=== PATIENT | male | born 1975 | race Caucasian/White ===

== ENCOUNTER 2021-08-25 08:57 | Observation (INO) | payer OTHER ==
[2021-08-25] MEDS ORDERED: Sodium Chloride 0.9% 10 ML Syringe FLUSH PRN ×2 (09:05→11:34)
[2021-08-25] MEDS ORDERED: Sodium Chloride 0.9% 2.5 ML Syringe FLUSH PRN ×2 (09:05→11:34)
--- NOTE | 2021-08-25 09:09 | EDM.PDOC ---
ED HPI GENERAL MEDICAL PROBLEM - General Chief Complaint: Abdominal Pain Stated Complaint: R LOWER QUAD PAIN Time Seen by Provider: 08/25/21 09:00 - History of Present Illness INITIAL COMMENTS - FREE TEXT/NARRATIVE: 46-year-old male with minimal past history presenting with abdominal pain. Symptoms started on Saturday with an 8 out of 10 periumbilical abdominal pain that is radiated to the right lower quadrant and is now relatively mild maybe 1 out of 10. It is associated with anorexia and diarrhea pheresis subjective fevers as well. No diarrhea no vomiting. No dysuria or hematuria. No prior abdominal surgeries. Patient Clines pain medication at this time. Abdominal pain Pain Score (Numeric/FACES): 2 - Related Data Allergies Allergy/AdvReac Type Severity Reaction Status Date / Time No Known Allergies Allergy Verified 08/25/21 09:02 Home Meds: Home Meds Multivitamin 1 each PO 08/25/21 [History] Past Medical History - Past Health History Medical/Surgical History: Denies Medical/Surgical History Genitourinary History: Reports: Renal Calculus - Infectious Disease History Infectious Disease History: Reports: Chicken Pox - Past Surgical History Male Surgical History: Reports: Kidney Stone Extraction Social & Family History - Family History Family Medical History: No Pertinent Family History - Caffeine Use Caffeine Use: Reports: Soda ED ROS GENERAL - Review of Systems Review Of Systems: See Below Free Text/Narrative/Comment: General: Per HPI ENT: No sore throat. Neck: No neck stiffness. Respiratory: No shortness of breath. Cardiac: No chest pain. Gastrointestinal: Per HPI Urinary: No dysuria. Musculoskeletal: No myalgias/arthralgias. Neurologic: No headache. ED EXAM, GENERAL - Physical Exam Exam: See Below Free Text/Narrative:: General Appearance: No acute distress, appears comfortable Skin: No rash HEENT: Normocephalic/atraumatic, sclera anicteric, mucous membranes moist Neck: Normal range of motion Chest and Lungs: Bilateral breath sounds, clear to auscultation Cardiovascular: Regular rate and rhythm Abdomen: Soft, right lower quadrant tenderness with guarding remainder of abdomen is soft and nontender Musculoskeletal: No edema or tenderness Neurologic: Awake, alert, no obvious deficits, moving all extremities Psychiatric: Appropriate, cooperative Course - Vital Signs Last Recorded V/S: Last Vital Signs Temp 97.8 F 08/25/21 08:59 Pulse 87 08/25/21 09:56 Resp 18 08/25/21 09:56 BP 126/82 08/25/21 09:56 Pulse Ox 97 08/25/21 09:56 - Orders/Labs/Meds Orders: Active Orders 24 hr Category Date Time Status CORONAVIRUS COVID-19 FLORENTIN [MOLEC] Stat Lab 08/25/21 10:34 Ordered Sodium Chloride 0.9% [Saline Flush] Med 08/25/21 09:05 Active 10 ml FLUSH ASDIRECTED PRN Sodium Chloride 0.9% [Saline Flush] Med 08/25/21 09:05 Active 2.5 ml FLUSH ASDIRECTED PRN Saline Lock Insert [OM.PC] Stat Oth 08/25/21 09:05 Ordered Medication Orders Sodium Chloride (Sodium Chloride 0.9% 10 Ml Syringe) 10 ml FLUSH ASDIRECTED PRN PRN Reason: Keep Vein Open Last Admin: 08/25/21 09:22 Dose: 10 ml Documented by: REYES Sodium Chloride (Sodium Chloride 0.9% 2.5 Ml Syringe) 2.5 ml FLUSH ASDIRECTED PRN PRN Reason: Keep Vein Open Last Admin: 08/25/21 09:22 Dose: 2.5 ml Documented by: REYES Labs: Laboratory Tests 08/25/21 08/25/21 Range/Units 09:13 10:04 WBC 6.73 (4.0-11.0) K/uL RBC 5.52 (4.50-5.90) M/uL Hgb 16.8 (13.0-17.0) g/dL Hct 48.8 (38.0-50.0) % MCV 88.4 (80.0-98.0) fL MCH 30.4 (27.0-32.0) pg MCHC 34.4 (31.0-37.0) g/dL RDW Std Deviation 42.4 (28.0-62.0) fl RDW Coeff of George 13 (11.0-15.0) % Plt Count 159 (150-400) K/uL MPV 9.90 (7.40-12.00) fL Neut % (Auto) 84.9 H (48.0-80.0) % Lymph % (Auto) 5.6 L (16.0-40.0) % [place] % (Auto) 9.2 (0.0-15.0) % Eos % (Auto) 0.0 (0.0-7.0) % Baso % (Auto) 0.3 (0.0-1.5) % Neut # (Auto) 5.7 (1.4-5.7) K/uL Lymph # (Auto) 0.4 L (0.6-2.4) K/uL [place] # (Auto) 0.6 (0.0-0.8) K/uL Eos # (Auto) 0.0 (0.0-0.7) K/uL Baso # (Auto) 0.0 (0.0-0.1) K/uL Nucleated RBC % 1.4 /100WBC Nucleated RBCs # 0 K/uL Sodium 137 (136-148) mmol/L Potassium 4.0 (3.5-5.1) mmol/L Chloride 100 (98-107) mmol/L Carbon Dioxide 25.3 (21.0-32.0) mmol/L BUN 11 (7.0-18.0) mg/dL Creatinine 0.9 (0.8-1.3) mg/dL Est Cr Clr Drug Dosing 103.64 mL/min Estimated GFR (MDRD) > 60.0 ml/min Glucose 120 H (74-106) mg/dL Calcium 8.7 (8.5-10.1) mg/dL Total Bilirubin 1.3 H (0.2-1.0) mg/dL AST 41 H (15-37) IU/L ALT 74 H (14-63) IU/L Alkaline Phosphatase 56 (46-116) U/L Total Protein 6.3 L (6.4-8.2) g/dL Albumin 3.5 (3.4-5.0) g/dL Globulin 2.8 (2.6-4.0) g/dL Albumin/Globulin Ratio 1.2 (0.9-1.6) Meds: Medications Generic Name Dose Route Start Last Admin Trade Name Freq PRN Reason Stop Dose Admin Sodium Chloride 10 ml 08/25/21 09:05 08/25/21 09:22 Sodium Chloride 0.9% 10 Ml Syringe FLUSH 10 ml ASDIRECTED PRN Administration Keep Vein Open Sodium Chloride 2.5 ml 08/25/21 09:05 08/25/21 09:22 Sodium Chloride 0.9% 2.5 Ml Syringe FLUSH 2.5 ml ASDIRECTED PRN Administration Keep Vein Open Discontinued Medications Generic Name Dose Route Start Last Admin Trade Name Freq PRN Reason Stop Dose Admin Iopamidol 100 ml 08/25/21 10:16 08/25/21 10:16 Iopamidol 755 Mg/Ml 500 Ml Multipack Bottle IVPUSH 08/25/21 10:17 100 ml ONETIME ONE Administration Departure - Departure Time of Disposition: 10:40 Disposition: Refer to Observation Condition: Good Clinical Impression: Acute appendicitis - Discharge Information *PRESCRIPTION DRUG MONITORING PROGRAM REVIEWED*: Not Applicable *COPY OF PRESCRIPTION DRUG MONITORING REPORT IN PATIENT JOSE: Not Applicable Referrals: Gerardo Luther MD [Primary Care Provider] - Forms: ED Department Discharge Sepsis Event Note (ED) - Evaluation Sepsis Screening Result: No Definite Risk - Focused Exam Vital Signs: Vital Signs Temp Pulse Resp BP Pulse Ox 08/25/21 09:56 87 18 126/82 97 08/25/21 08:59 97.8 F 99 18 146/91 H 97 - My Orders Last 24 Hours: My Active Orders 08/25/21 09:05 Sodium Chloride 0.9% [Saline Flush] 10 ml FLUSH ASDIRECTED PRN Sodium Chloride 0.9% [Saline Flush] 2.5 ml FLUSH ASDIRECTED PRN Saline Lock Insert [OM.PC] Stat 08/25/21 10:34 CORONAVIRUS COVID-19 FLORENTIN [MOLEC] Stat - Assessment/Plan Last 24 Hours: My Active Orders 08/25/21 09:05 Sodium Chloride 0.9% [Saline Flush] 10 ml FLUSH ASDIRECTED PRN Sodium Chloride 0.9% [Saline Flush] 2.5 ml FLUSH ASDIRECTED PRN Saline Lock Insert [OM.PC] Stat 08/25/21 10:34 CORONAVIRUS COVID-19 FLORENTIN [MOLEC] Stat Assessment:: 46-year-old male presenting with signs and symptoms that are most consistent with appendicitis no right upper quadrant findings that would suggest biliary colic renal colic is possible but is felt less likely. Other etiologies considered as well labs and CT pending. Patient declines pain or nausea medicine at this time. 1033: Labs thus far unremarkable. Pt discussed with radiologist and CT a/p with appendicitis, early, no perforation, or abscess 1040: Pt discussed with Dr. Todd. Will refer to observation bed and patient will be seen for likely surgery later today.
[2021-08-25] MEDS ORDERED: Iopamidol 755 MG/ML 500 ML Multipack Bottle IVPUSH ONE (10:16)
--- NOTE | 2021-08-25 10:35 | CT ---
Indication: Right lower quadrant pain Technique: Volumetric multidetector CT images of the abdomen and pelvis were obtained after the administration of intravenous contrast. 100 cc Isovue 370 low osmolar intravenous contrast Comparison: CT abdomen and pelvis without contrast August 12, 2018 Findings: There is bibasilar atelectasis and parenchymal scarring with calcified granuloma in the right lung base. The liver is enlarged with mild to moderate hepatic steatosis and hepatomegaly. The portal vein is patent. The gallbladder is unremarkable without evidence of radiopaque calculus. There is no significant common biliary ductal dilatation or abrupt cut off. The spleen is normal in enhancement and size. There is mild thickening of the gastric antrum and minimal mucosal hyperemia commensurate with likely chronic gastritis changes. The pancreas is normal in enhancement without significant atrophy. The adrenal glands are unremarkable. The kidneys demonstrate preserved corticomedullary differentiation without evidence of obstructive uropathy. There is a mild amount of stool seen throughout the colon. There is mild distal colonic diverticulosis. There is marked distention of the appendix with mucosal hyperemia and periappendiceal inflammatory changes measuring up to 1 centimeter in greatest dimension. There are reactive lymph nodes in the right lower quadrant. The aorta is nonaneurysmal. There is no significant atherosclerotic disease appreciated. The solid pelvic viscera are grossly unremarkable. There is no free fluid or free air. The anterior abdominal wall is intact without significant hernias. The lumbar vertebral body heights are grossly maintained with mild multi-level degenerative disc disease. Impression: There is mild fluid distension, mucosal hyperemia and periappendiceal inflammatory changes commensurate with uncomplicated appendicitis. No other acute intra-abdominal abnormalities are appreciated. Findings were discussed with Dr. Davidson at 10:30 a.m. August 25, [address] all CT scans at this facility use dose modulation, iterative reconstruction, and/or weight-based dosing when appropriate to reduce radiation dose to as low as reasonably achievable. Dictated by Waylon Hernandez MD @ 08/25/2021 10:35:20 AM (Electronically Signed)
[2021-08-25 10:38] LABS: BLOOD UREA NITROGEN,BUN 11 mg/dL (7.0-18.0); CARBON DIOXIDE,CO2 25.3 mmol/L (21.0-32.0); CHLORIDE,CL 100 mmol/L (98-107); GLUCOSE RANDOM 120 mg/dL (74-106); SODIUM,NA 137 mmol/L (136-148)
[2021-08-25] MEDS ORDERED: Piperacillin/Tazobactam 4.5 GM in Sodium Chloride 0.9% 100 ML IV ONE (10:40)
[2021-08-25] MEDS ORDERED: Albuterol 0.083% 2.5 MG/3 ML Neb Soln NEB PRN (11:11)
[2021-08-25] MEDS ORDERED: Ondansetron 4 MG/2 ML SDV IVPUSH PRN ×2 (11:11→11:35)
[2021-08-25] MEDS ORDERED: Morphine 4 MG/ML VIAL IVPUSH PRN (11:11)
[2021-08-25] MEDS ORDERED: fentaNYL 100 MCG/2 ML SDV IVPUSH PRN (11:11)
[2021-08-25] MEDS ORDERED: HYDROmorphone 1 MG/ML Syringe IVPUSH PRN (11:11)
[2021-08-25] MEDS ORDERED: Naloxone 0.4 MG/ML SDV IVPUSH PRN (11:11)
[2021-08-25] MEDS ORDERED: Metoclopramide 10 MG/2 ML SDV IVPUSH PRN (11:11)
--- NOTE | 2021-08-25 11:13 | PCM.PREANE ---
Preanesthetic Assessment - Anesthesia/Transfusion/Family Hx Anesthesia History: Prior Anesthesia Without Reaction Family History of Anesthesia Reaction: No - Review of Systems General: No Symptoms Pulmonary: No Symptoms Cardiovascular: No Symptoms Gastrointestinal: Abdominal Pain Neurological: No Symptoms Other: Reports: None - Physical Assessment NPO Status Date: 08/25/21 NPO Status Time: 07:00 Vital Signs: Last Vital Signs Temp 97.8 F 08/25/21 08:59 Pulse 87 08/25/21 09:56 Resp 18 08/25/21 09:56 BP 126/82 08/25/21 09:56 Pulse Ox 97 08/25/21 09:56 Height: 5 ft 10 in Weight: 220 lb ASA Class: 1E Mental Status: Alert & Oriented x3 Airway Class: Mallampati = 2 Dentition: Reports: Normal Dentition ROM/Head Extension: Full Lungs: Clear to Auscultation, Normal Respiratory Effort Cardiovascular: Regular Rate, Regular Rhythm - Lab Values: Laboratory Last Values WBC 6.73 K/uL (4.0-11.0) 08/25/21 09:13 RBC 5.52 M/uL (4.50-5.90) 08/25/21 09:13 Hgb 16.8 g/dL (13.0-17.0) 08/25/21 09:13 Hct 48.8 % (38.0-50.0) 08/25/21 09:13 MCV 88.4 fL (80.0-98.0) 08/25/21 09:13 MCH 30.4 pg (27.0-32.0) 08/25/21 09:13 MCHC 34.4 g/dL (31.0-37.0) 08/25/21 09:13 RDW Std Deviation 42.4 fl (28.0-62.0) 08/25/21 09:13 RDW Coeff of George 13 % (11.0-15.0) 08/25/21 09:13 Plt Count 159 K/uL (150-400) 08/25/21 09:13 MPV 9.90 fL (7.40-12.00) 08/25/21 09:13 Neut % (Auto) 84.9 % (48.0-80.0) H 08/25/21 09:13 Lymph % (Auto) 5.6 % (16.0-40.0) L 08/25/21 09:13 [place] % (Auto) 9.2 % (0.0-15.0) 08/25/21 09:13 Eos % (Auto) 0.0 % (0.0-7.0) 08/25/21 09:13 Baso % (Auto) 0.3 % (0.0-1.5) 08/25/21 09:13 Neut # (Auto) 5.7 K/uL (1.4-5.7) 08/25/21 09:13 Lymph # (Auto) 0.4 K/uL (0.6-2.4) L 08/25/21 09:13 [place] # (Auto) 0.6 K/uL (0.0-0.8) 08/25/21 09:13 Eos # (Auto) 0.0 K/uL (0.0-0.7) 08/25/21 09:13 Baso # (Auto) 0.0 K/uL (0.0-0.1) 08/25/21 09:13 Nucleated RBC % 1.4 /100WBC 08/25/21 09:13 Nucleated RBCs # 0 K/uL 08/25/21 09:13 Sodium 137 mmol/L (136-148) 08/25/21 10:04 Potassium 4.0 mmol/L (3.5-5.1) 08/25/21 10:04 Chloride 100 mmol/L (98-107) 08/25/21 10:04 Carbon Dioxide 25.3 mmol/L (21.0-32.0) 08/25/21 10:04 BUN 11 mg/dL (7.0-18.0) 08/25/21 10:04 Creatinine 0.9 mg/dL (0.8-1.3) 08/25/21 10:04 Est Cr Clr Drug Dosing 103.64 mL/min 08/25/21 10:04 Estimated GFR (MDRD) > 60.0 ml/min 08/25/21 10:04 Glucose 120 mg/dL (74-106) H 08/25/21 10:04 Calcium 8.7 mg/dL (8.5-10.1) 08/25/21 10:04 Total Bilirubin 1.3 mg/dL (0.2-1.0) H 08/25/21 10:04 AST 41 IU/L (15-37) H 08/25/21 10:04 ALT 74 IU/L (14-63) H 08/25/21 10:04 Alkaline Phosphatase 56 U/L (46-116) 08/25/21 10:04 Total Protein 6.3 g/dL (6.4-8.2) L 08/25/21 10:04 Albumin 3.5 g/dL (3.4-5.0) 08/25/21 10:04 Globulin 2.8 g/dL (2.6-4.0) 08/25/21 10:04 Albumin/Globulin Ratio 1.2 (0.9-1.6) 08/25/21 10:04 - Allergies Allergies/Adverse Reactions: Allergies Allergy/AdvReac Type Severity Reaction Status Date / Time No Known Allergies Allergy Verified 08/25/21 09:02 - Acknowledgements Anesthesia Type Planned: General Anesthesia Pt an Appropriate Candidate for the Planned Anesthesia: Yes Alternatives and Risks of Anesthesia Discussed w Pt/Guardian: Yes Pt/Guardian Understands and Agrees with Anesthesia Plan: Yes PreAnesthesia Questionnaire - Past Health History Medical/Surgical History: Denies Medical/Surgical History Genitourinary History: Reports: Renal Calculus - Infectious Disease History Infectious Disease History: Reports: Chicken Pox - Past Surgical History Male Surgical History: Reports: Kidney Stone Extraction - SUBSTANCE USE Tobacco Use Status *Q: Never Tobacco User Recreational Drug Use History: No - HOME MEDS Home Medications: Home Meds Multivitamin 1 each PO 08/25/21 [History] - CURRENT (IN HOUSE) MEDS Current Meds: Current Medications Piperacillin Sod/Tazobactam (Sod 4.5 gm/ Sodium Chloride) 100 mls @ 100 mls/hr IV ONETIME ONE Stop: 08/25/21 11:39 Last Admin: 08/25/21 11:10 Dose: 100 mls/hr Documented by: Sodium Chloride (Sodium Chloride 0.9% 10 Ml Syringe) 10 ml FLUSH ASDIRECTED PRN PRN Reason: Keep Vein Open Last Admin: 08/25/21 09:22 Dose: 10 ml Documented by: Sodium Chloride (Sodium Chloride 0.9% 2.5 Ml Syringe) 2.5 ml FLUSH ASDIRECTED PRN PRN Reason: Keep Vein Open Last Admin: 08/25/21 09:22 Dose: 2.5 ml Documented by: Discontinued Medications Iopamidol (Iopamidol 755 Mg/Ml 500 Ml Multipack Bottle) 100 ml IVPUSH ONETIME ONE Stop: 08/25/21 10:17 Last Admin: 08/25/21 10:16 Dose: 100 ml Documented by:
[2021-08-25] MEDS ORDERED: HYDROmorphone 2 MG/ML Syringe IVPUSH PRN (11:34)
[2021-08-25] MEDS ORDERED: Sodium Chloride 0.9% 20 ML SDV IV PRN (11:34)
[2021-08-25] MEDS ORDERED: Lactated Ringers 1,000 ML IV SCH (11:45)
--- NOTE | 2021-08-25 11:46 | PCM.HP.2 ---
H&P History of Present Illness - General Date of Service: 08/25/21 Admit Problem/Dx: Admission Diagnosis/Problem Admission Diagnosis/Problem Acute appendicitis Source of Information: Patient History Limitations: Reports: No Limitations - History of Present Illness Initial Comments - Free Text/Narative: Patient is a 46 year old male who presents with 2 days of abdominal pain. He states that Saturday night he had pain along the central portion of his abdomen. This was severe. It was associated with fever and chills. He denies nausea or vomiting. The pain became more centered in the RLQ so the patient presented to the ER. His vitals were stable on arrival. His WBC was normal but his neutrophil % was increased to 84%. He had a CT scan that showed mild thickening of the antrum consistent with chronic gastritis, diverticulosis, and acute appendicitis. Abdominal pain Pain Score (Numeric/FACES): 2 - Related Data Allergies/Adverse Reactions: Allergies Allergy/AdvReac Type Severity Reaction Status Date / Time No Known Allergies Allergy Verified 08/25/21 09:02 Home Medications: Home Meds Multivitamin 1 each PO 08/25/21 [History] Past Medical History - Past Health History Medical/Surgical History: Denies Medical/Surgical History Genitourinary History: Reports: Renal Calculus - Infectious Disease History Infectious Disease History: Reports: Chicken Pox - Past Surgical History Male Surgical History: Reports: Kidney Stone Extraction Social & Family History - Family History Family Medical History: No Pertinent Family History - Tobacco Use Tobacco Use Status *Q: Never Tobacco User - Caffeine Use Caffeine Use: Reports: Soda - Recreational Drug Use Recreational Drug Use: No H&P Review of Systems - Review of Systems: Review Of Systems: Comprehensive ROS is negative, except as noted in HPI. Exam - Exam Exam: See Below - Vital Signs Vital Signs: Last Vital Signs Temp 36.6 C 08/25/21 08:59 Pulse 87 08/25/21 09:56 Resp 18 08/25/21 09:56 BP 126/82 08/25/21 09:56 Pulse Ox 97 08/25/21 09:56 Weight: 99.79 kg - Exam General: Alert, Oriented, Cooperative HEENT: Conjunctiva Clear, Mucosa Moist & [place], Posterior Pharynx Clear Neck: Supple Lungs: Clear to Auscultation, Normal Respiratory Effort Cardiovascular: Regular Rate, Regular Rhythm GI/Abdominal Exam: Soft, Non-Tender, No Distention, No Mass - Patient Data Lab Results Last 24 hrs: Laboratory Results - last 24 hr 08/25/21 08/25/21 Range/Units 09:13 10:04 WBC 6.73 (4.0-11.0) K/uL RBC 5.52 (4.50-5.90) M/uL Hgb 16.8 (13.0-17.0) g/dL Hct 48.8 (38.0-50.0) % MCV 88.4 (80.0-98.0) fL MCH 30.4 (27.0-32.0) pg MCHC 34.4 (31.0-37.0) g/dL RDW Std Deviation 42.4 (28.0-62.0) fl RDW Coeff of George 13 (11.0-15.0) % Plt Count 159 (150-400) K/uL MPV 9.90 (7.40-12.00) fL Neut % (Auto) 84.9 H (48.0-80.0) % Lymph % (Auto) 5.6 L (16.0-40.0) % [place] % (Auto) 9.2 (0.0-15.0) % Eos % (Auto) 0.0 (0.0-7.0) % Baso % (Auto) 0.3 (0.0-1.5) % Neut # (Auto) 5.7 (1.4-5.7) K/uL Lymph # (Auto) 0.4 L (0.6-2.4) K/uL [place] # (Auto) 0.6 (0.0-0.8) K/uL Eos # (Auto) 0.0 (0.0-0.7) K/uL Baso # (Auto) 0.0 (0.0-0.1) K/uL Nucleated RBC % 1.4 /100WBC Nucleated RBCs # 0 K/uL Sodium 137 (136-148) mmol/L Potassium 4.0 (3.5-5.1) mmol/L Chloride 100 (98-107) mmol/L Carbon Dioxide 25.3 (21.0-32.0) mmol/L BUN 11 (7.0-18.0) mg/dL Creatinine 0.9 (0.8-1.3) mg/dL Est Cr Clr Drug Dosing 103.64 mL/min Estimated GFR (MDRD) > 60.0 ml/min Glucose 120 H (74-106) mg/dL Calcium 8.7 (8.5-10.1) mg/dL Total Bilirubin 1.3 H (0.2-1.0) mg/dL AST 41 H (15-37) IU/L ALT 74 H (14-63) IU/L Alkaline Phosphatase 56 (46-116) U/L Total Protein 6.3 L (6.4-8.2) g/dL Albumin 3.5 (3.4-5.0) g/dL Globulin 2.8 (2.6-4.0) g/dL Albumin/Globulin Ratio 1.2 (0.9-1.6) Result Diagrams: 08/25/21 09:13 08/25/21 10:04 Sepsis Event Note - Evaluation Sepsis Screening Result: No Definite Risk - Focused Exam Vital Signs: Vital Signs Temp Pulse Resp BP Pulse Ox 08/25/21 09:56 87 18 126/82 97 08/25/21 08:59 36.6 C 99 18 146/91 H 97 - Problem List (1) Acute appendicitis SNOMED Code(s): 53549623 ICD Code: K35.80 - UNSPECIFIED ACUTE APPENDICITIS Status: Acute Current Visit: Yes Problem List Initiated/Reviewed/Updated: Yes Orders Last 24hrs: Active Orders 24 hr Category Date Time Status Patient Status [ADT] Routine ADT 08/25/21 10:41 Active Blood Glucose Check, Bedside [RC] PRN Care 08/25/21 11:11 Active Notify Provider Vital Signs [RC] ASDIRECTED Care 08/25/21 11:11 Active Overnight Pulse Oximetry [RC] Click to Edit Care 08/25/21 11:11 Active Oxygen Therapy [RC] PRN Care 08/25/21 11:11 Active Oxygen Therapy [RC] PRN Care 08/25/21 11:34 Ordered RT Aerosol Therapy [RC] ASDIRECTED Care 08/25/21 11:11 Active RT Aerosol Therapy [RC] ASDIRECTED Care 08/25/21 11:11 Active RT BiPAP/CPAP [RC] ASDIRECTED Care 08/25/21 11:11 Active RT Incentive Spirometry [RC] Q1HWA Care 08/25/21 11:34 Ordered Up ad Julissa [RC] ASDIRECTED Care 08/25/21 11:34 Ordered Vital Signs [RC] PER UNIT ROUTINE Care 08/25/21 11:34 Ordered Vital Signs [RC] Q5M Care 08/25/21 11:11 Active Nothing Per Oral Diet [DIET] Diet 08/25/21 Lunch Ordered CORONAVIRUS COVID-19 FLORENTIN [MOLEC] Stat Lab 08/25/21 10:58 Received Albuterol [Proventil Neb Soln] Med 08/25/21 11:11 Ordered 2.5 mg NEB ONETIME PRN HYDROmorphone [Dilaudid] Med 08/25/21 11:34 Ordered 0.5 mg IVPUSH Q1H PRN HYDROmorphone [Dilaudid] Med 08/25/21 11:11 Ordered 1 mg IVPUSH Q10M PRN Lactated Ringers @ 125 MLS/HR(1000ml) Med 08/25/21 11:45 Ordered Lactated Ringers [Ringers, Lactated] 1,000 ml IV ASDIRECTED Metoclopramide [Reglan] Med 08/25/21 11:11 Ordered 10 mg IVPUSH ONETIME PRN Morphine Med 08/25/21 11:11 Ordered 2 mg IVPUSH Q10M PRN Naloxone [Narcan] Med 08/25/21 11:11 Ordered 0.1 mg IVPUSH ASDIRECTED PRN Ondansetron [Zofran] Med 08/25/21 11:11 Ordered 4 mg IVPUSH ONETIME PRN Ondansetron [Zofran] Med 08/25/21 11:35 Ordered 4 mg IVPUSH Q6H PRN Sodium Chloride 0.9% [Normal Saline] Med 08/25/21 11:34 Ordered 10 ml IV ASDIRECTED PRN Sodium Chloride 0.9% [Saline Flush] Med 08/25/21 09:05 Active 10 ml FLUSH ASDIRECTED PRN Sodium Chloride 0.9% [Saline Flush] Med 08/25/21 11:34 Ordered 10 ml FLUSH ASDIRECTED PRN Sodium Chloride 0.9% [Saline Flush] Med 08/25/21 09:05 Active 2.5 ml FLUSH ASDIRECTED PRN Sodium Chloride 0.9% [Saline Flush] Med 08/25/21 11:34 Ordered 2.5 ml FLUSH ASDIRECTED PRN droperidoL [Inapsine] Med 08/25/21 11:11 Ordered 0.625 mg IVPUSH ONETIME PRN fentaNYL [Sublimaze] Med 08/25/21 11:11 Ordered 50 mcg IVPUSH Q5M PRN Peripheral IV Insertion Adult [OM.PC] Urgent Oth 08/25/21 11:34 Ordered Pulse Oximetry Continuous Monitoring [OM.PC] Routine Oth 08/25/21 11:11 Ordered Saline Lock Insert [OM.PC] Stat Oth 08/25/21 09:05 Ordered Resuscitation Status Routine Resus Stat 08/25/21 11:34 Ordered Medication Orders Albuterol (Albuterol 0.083% 2.5 Mg/3 Ml Neb Soln) 2.5 mg NEB ONETIME PRN PRN Reason: Wheezing Droperidol (Droperidol 5 Mg/2 Ml Sdv) 0.625 mg IVPUSH ONETIME PRN PRN Reason: Nausea/Vomiting Fentanyl (Fentanyl 100 Mcg/2 Ml Sdv) 50 mcg IVPUSH Q5M PRN PRN Reason: Pain (mild 1-3) Hydromorphone HCl (Hydromorphone 1 Mg/Ml Syringe) 1 mg IVPUSH Q10M PRN PRN Reason: Pain (moderate 4-6) Hydromorphone HCl (Hydromorphone 2 Mg/Ml Syringe) 0.5 mg IVPUSH Q1H PRN PRN Reason: Pain (severe 7-10) Lactated Ringer's (Ringers, Lactated) 1,000 mls @ 125 mls/hr IV ASDIRECTED JONY Metoclopramide HCl (Metoclopramide 10 Mg/2 Ml Sdv) 10 mg IVPUSH ONETIME PRN PRN Reason: Nausea/Vomiting Morphine Sulfate (Morphine 4 Mg/Ml Vial) 2 mg IVPUSH Q10M PRN PRN Reason: Pain (severe 7-10) Naloxone HCl (Naloxone 0.4 Mg/Ml Sdv) 0.1 mg IVPUSH ASDIRECTED PRN PRN Reason: Respiratory Depression Ondansetron HCl (Ondansetron 4 Mg/2 Ml Sdv) 4 mg IVPUSH ONETIME PRN PRN Reason: Nausea/Vomiting Ondansetron HCl (Ondansetron 4 Mg/2 Ml Sdv) 4 mg IVPUSH Q6H PRN PRN Reason: Nausea/Vomiting Sodium Chloride (Sodium Chloride 0.9% 10 Ml Syringe) 10 ml FLUSH ASDIRECTED PRN PRN Reason: Keep Vein Open Last Admin: 08/25/21 09:22 Dose: 10 ml Documented by: LEWILAC Sodium Chloride (Sodium Chloride 0.9% 2.5 Ml Syringe) 2.5 ml FLUSH ASDIRECTED PRN PRN Reason: Keep Vein Open Last Admin: 08/25/21 09:22 Dose: 2.5 ml Documented by: LEWILAC Sodium Chloride (Sodium Chloride 0.9% 10 Ml Syringe) 10 ml FLUSH ASDIRECTED PRN PRN Reason: Keep Vein Open Sodium Chloride (Sodium Chloride 0.9% 2.5 Ml Syringe) 2.5 ml FLUSH ASDIRECTED PRN PRN Reason: Keep Vein Open Sodium Chloride (Sodium Chloride 0.9% 20 Ml Sdv) 10 ml IV ASDIRECTED PRN PRN Reason: IV Use Assessment/Plan Comment:: The patient and I discussed the pathophysiology of acute appendicitis. I explained the need for a laparoscopic possible open appendectomy. We discussed the treatment for ruptured vs non-ruptured appendicitis and the expected perioperative course for laparoscopic vs open surgery. We discussed the procedure and the risks including bleeding infection or damage to surrounding structures. He verbalized understanding and wishes to proceed.
[2021-08-25] MEDS ORDERED: Dexmedetomidine 200 MCG/2 ML SDV ONE ×2 (13:04→13:05)
[2021-08-25] MEDS ORDERED: Esmolol 100 MG/10 ML SDV ONE ×2 (13:04→13:05)
[2021-08-25] MEDS ORDERED: Dexamethasone 4 MG/ML 5 ML MDV ONE ×2 (13:04→13:05)
[2021-08-25] MEDS ORDERED: Lidocaine 2% 5 ML SDV ONE ×2 (13:04→13:05)
[2021-08-25] MEDS ORDERED: fentaNYL 100 MCG/2 ML SDV ONE (13:05)
[2021-08-25] MEDS ORDERED: Propofol 200 MG/20 ML SDV ONE (13:05)
[2021-08-25] MEDS ORDERED: Midazolam 1 MG/ML 2 ML SDV ONE (13:05)
[2021-08-25] MEDS ORDERED: Water For Injection, Sterile 20 ML ONE (13:06)
[2021-08-25] MEDS ORDERED: Rocuronium Bromide 50 MG/5 ML Syringe ONE (13:06)
[2021-08-25] MEDS ORDERED: Bupivacaine 0.5% 10 ML SDV ONE ×2 (13:56→14:45)
[2021-08-25] MEDS ORDERED: Octyl 2-Cyanoacrylate 1 Tube ONE (13:56)
[2021-08-25] MEDS ORDERED: Sugammadex Sodium 200 MG/2 ML VIAL ONE (14:54)
[2021-08-25] MEDS ORDERED: Ondansetron 4 MG/2 ML SDV ONE (14:54)
[2021-08-25] MEDS ORDERED: Ketorolac 30 MG/ML SDV ONE (14:54)
[2021-08-25] MEDS ORDERED: Acetaminophen/HYDROcodone 325-5 MG Tab PO PRN (15:49)
--- NOTE | 2021-08-25 15:49 | PCM.OPNOTE ---
- General Post-Op/Procedure Note Date of Surgery/Procedure: 08/25/21 Operative Procedure(s): Laparoscopic appendectomy Findings: Enlarged and inflamed retrocecal appendix. No evidence of perforation. Pre Op Diagnosis: Appendicitis Post-Op Diagnosis: same Anesthesia Technique: General ET Tube Primary Surgeon: Nai Todd Pathology: appendix Fluid Replacement, Intraop: 1,200 Output, Urine Amount: 75 EBL in mLs: 5 Condition: Stable
--- NOTE | 2021-08-25 15:58 | PCM.POSTAN ---
POST ANESTHESIA ASSESSMENT - MENTAL STATUS Mental Status: Alert, Oriented - VITAL SIGNS Vital Signs: Last Vital Signs Temp 36.8 C 08/25/21 15:43 Pulse 67 08/25/21 15:53 Resp 17 08/25/21 15:53 BP 99/63 08/25/21 15:53 Pulse Ox 92 L 08/25/21 15:53 - RESPIRATORY Respiratory Status: Respiratory Rate WNL, Airway Patent, O2 Saturation Stable - CARDIOVASCULAR CV Status: Pulse Rate WNL, Blood Pressure Stable - GASTROINTESTINAL GI Status: No Symptoms - POST OP HYDRATION Hydration Status: Adequate & Stable
--- NOTE | 2021-08-25 16:13 | PCM48HPAN ---
Post Anesthesia Note - EVALUATION WITHIN 48HRS OF ANESTHETIC Vital Signs in Normal Range: Yes Patient Participated in Evaluation: Yes Respiratory Function Stable: Yes Airway Patent: Yes Cardiovascular Function Stable: Yes Hydration Status Stable: Yes Pain Control Satisfactory: Yes Nausea and Vomiting Control Satisfactory: Yes Mental Status Recovered: Yes Vital Signs: Last Vital Signs Temp 36.8 C 08/25/21 15:43 Pulse 72 08/25/21 16:08 Resp 10 L 08/25/21 16:08 BP 106/70 08/25/21 16:08 Pulse Ox 94 L 08/25/21 16:08
--- NOTE | 2021-08-25 21:51 | OR ---
SURGEON: NAI TODD MD DATE OF PROCEDURE: 08/25/2021 PREOPERATIVE DIAGNOSIS: Acute appendicitis. POSTOPERATIVE DIAGNOSIS: Acute appendicitis. PROCEDURE PERFORMED: Laparoscopic appendectomy. PRIMARY SURGEON: Nai Todd MD ANESTHESIA: General endotracheal anesthesia. FLUIDS: 1200 mL of crystalloid. ESTIMATED BLOOD LOSS: 5 mL. URINE OUTPUT: 75 mL. FINDINGS: Inflamed and dilated retrocecal appendix. No evidence of perforation. COMPLICATIONS: None. INDICATIONS: The patient is a 46-year-old male who presented to the emergency room with two days of abdominal pain. Workup revealed acute appendicitis. I explained the need for an appendectomy. I would attempt this laparoscopically but convert to open should I be unable to perform it safely. I explained the procedure as well as the risks including bleeding, infection, and damage to surrounding structures. He verbalized understanding and wishes to proceed. PROCEDURE IN DETAIL: The patient was brought in to the OR and placed on the OR table in supine position. A time-out was completed verifying the patient's name, age, date of , allergies, and procedure to be performed. General endotracheal anesthesia was induced. The left arm was tucked at the patient's side and a Perez catheter placed. The abdomen was shaved and then prepped and draped in usual standard fashion. I anesthetized an area two fingerbreadths below the left subcostal margin in the midclavicular line with 0.5% Marcaine plain. A 1 cm incision was made using an 11-blade. A 5 mm optical trocar was used to gain entry into the left upper quadrant under direct visualization. All layers of the abdominal wall were visualized upon entry. The abdomen was then insufflated and a 5 mm 30-degree scope inserted. I inspected the area underneath my initial trocar placement. No damage to surrounding structures was noted. A 5 mm trocar was placed just left and lateral to the umbilicus and a 12 mm trocar was placed in the left lower quadrant. The patient was placed into Trendelenburg position and airplaned slightly to the left. I turned my attention to the right lower quadrant. I identified the cecum. I followed the tenia down to the base of the appendix. The appendix was retrocecal. The appendix appeared dilated and inflamed, but had no evidence of perforation. The body of the appendix had multiple adhesions to the retroperitoneum. These were taken down with blunt dissection using a suction device as well as a [place]. This allowed a little bit more mobilization of the appendix itself. The tip of the appendix was able to be grasped and moved more anteriorly. I started taking down the appendiceal mesentery from proximal to distal. As I got more proximal to the base of the appendix, the appendix was more stuck to the retroperitoneum. Instead, I turned my attention to the base of the appendix. A window was made between the base of the appendix and the appendiceal mesentery. An endoscopic stapling device was brought into the field. I stapled and transected along the base of the appendix using a 45 mm purple load of candelaria. By doing this, I was then able to take down the rest of the attachments of the appendix to the appendiceal mesentery from proximal to distal using the Harmonic scalpel device. Once the appendix was completely freed from the appendiceal mesentery, it was placed in an EndoCatch bag and removed through the 12 mm port site. I inspected my operative field. The patient had an appendiceal stump. In order to not leave any appendix behind, I grasped this with a grasper and brought the endoscopic stapling device in again. I positioned the stapler closer to the base of the appendix and stapled again. The secondary piece of appendix was then placed in an EndoCatch bag and removed through the 12 mm port site again. This made the stump of the appendix flush with the cecum, and I was happy with my staple line. The area where I had dissected along the retroperitoneum was slightly oozy. A piece of Surgicel was placed along this area and I used endoscopic Nj. After using these materials, the area became hemostatic. I suctioned out some of the free fluid around the area and used limited irrigation. The 12 mm trocar was then removed and the fascia at the site closed with interrupted 0 Vicryl suture using a Andres-Curtis device. The 5 mm trocars were then removed under direct visualization and the abdomen allowed to desufflate. The subcutaneous fat at all three port sites was closed with interrupted 3-0 Vicryl sutures, and the skin was closed with a running 4-0 Monocryl stitch at the 12 mm trocar site and interrupted 4-0 Monocryl sutures at the 5 mm trocar sites. Tegaderm and sterile dressings were applied. The patient tolerated the procedure well, was extubated, and taken to PACU in stable condition. All counts were complete and correct at the end of the case. JAVI / MODE /[id number]
[2021-08-26] MEDS ORDERED: Omeprazole 20 MG Cap.CR PO SCH (07:30)
--- NOTE | 2021-08-26 08:34 | PCM.SURGPN ---
- General Info Date of Service: 08/26/21 Date of Surgery/Procedure: 08/25/21 POD#: 1 Functional Status: Reports: Pain Controlled, Tolerating Diet, Ambulating, Urinating, New Symptoms - Review of Systems General: Reports: No Symptoms Pulmonary: Reports: No Symptoms Cardiovascular: Reports: No Symptoms Gastrointestinal: Reports: No Symptoms Genitourinary: Reports: No Symptoms - Patient Data Vitals - Most Recent: Last Vital Signs Temp 36.1 C 08/26/21 07:51 Pulse 82 08/26/21 07:51 Resp 16 08/26/21 07:51 BP 118/74 08/26/21 07:51 Pulse Ox 96 08/26/21 07:51 Weight - Most Recent: 103.737 kg I&O - Last 24 Hours: Intake & Output 08/25/21 08/26/21 08/26/21 22:59 06:59 14:59 Intake Total 1200 1800 Output Total 75 1350 Balance 1125 450 Lab Results Last 24 Hrs: Laboratory Results - last 24 hr 08/25/21 08/25/21 08/25/21 Range/Units 09:13 10:04 10:58 WBC 6.73 (4.0-11.0) K/uL RBC 5.52 (4.50-5.90) M/uL Hgb 16.8 (13.0-17.0) g/dL Hct 48.8 (38.0-50.0) % MCV 88.4 (80.0-98.0) fL MCH 30.4 (27.0-32.0) pg MCHC 34.4 (31.0-37.0) g/dL RDW Std Deviation 42.4 (28.0-62.0) fl RDW Coeff of George 13 (11.0-15.0) % Plt Count 159 (150-400) K/uL MPV 9.90 (7.40-12.00) fL Neut % (Auto) 84.9 H (48.0-80.0) % Lymph % (Auto) 5.6 L (16.0-40.0) % Weber % (Auto) 9.2 (0.0-15.0) % Eos % (Auto) 0.0 (0.0-7.0) % Baso % (Auto) 0.3 (0.0-1.5) % Neut # (Auto) 5.7 (1.4-5.7) K/uL Lymph # (Auto) 0.4 L (0.6-2.4) K/uL Weber # (Auto) 0.6 (0.0-0.8) K/uL Eos # (Auto) 0.0 (0.0-0.7) K/uL Baso # (Auto) 0.0 (0.0-0.1) K/uL Nucleated RBC % 1.4 /100WBC Nucleated RBCs # 0 K/uL Sodium 137 (136-148) mmol/L Potassium 4.0 (3.5-5.1) mmol/L Chloride 100 (98-107) mmol/L Carbon Dioxide 25.3 (21.0-32.0) mmol/L BUN 11 (7.0-18.0) mg/dL Creatinine 0.9 (0.8-1.3) mg/dL Est Cr Clr Drug Dosing 103.64 mL/min Estimated GFR (MDRD) > 60.0 ml/min Glucose 120 H (74-106) mg/dL Calcium 8.7 (8.5-10.1) mg/dL Total Bilirubin 1.3 H (0.2-1.0) mg/dL AST 41 H (15-37) IU/L ALT 74 H (14-63) IU/L Alkaline Phosphatase 56 (46-116) U/L Total Protein 6.3 L (6.4-8.2) g/dL Albumin 3.5 (3.4-5.0) g/dL Globulin 2.8 (2.6-4.0) g/dL Albumin/Globulin Ratio 1.2 (0.9-1.6) SARS-CoV-2 RNA (FLORENTIN) NEGATIVE (NEGATIVE) Med Orders - Current: Current Medications Hydrocodone Bitart/Acetaminophen (Acetaminophen/Hydrocodone 325-5 Mg Tab) 2 tab PO Q4H PRN PRN Reason: Abdominal Pain Last Admin: 08/26/21 07:19 Dose: 2 tab Documented by: Albuterol (Albuterol 0.083% 2.5 Mg/3 Ml Neb Soln) 2.5 mg NEB ONETIME PRN PRN Reason: Wheezing Hydromorphone HCl (Hydromorphone 2 Mg/Ml Syringe) 0.5 mg IVPUSH Q1H PRN PRN Reason: Pain (severe 7-10) Lactated Ringer's (Ringers, Lactated) 1,000 mls @ 125 mls/hr IV ASDIRECTED [facility] Last Admin: 08/25/21 13:34 Dose: 125 mls/hr Documented by: Omeprazole (Omeprazole 20 Mg Cap.Cr) 40 mg PO ACBREAKFAST [facility] Last Admin: 08/26/21 07:15 Dose: 40 mg Documented by: Ondansetron HCl (Ondansetron 4 Mg/2 Ml Sdv) 4 mg IVPUSH Q6H PRN PRN Reason: Nausea/Vomiting Sodium Chloride (Sodium Chloride 0.9% 10 Ml Syringe) 10 ml FLUSH ASDIRECTED PRN PRN Reason: Keep Vein Open Last Admin: 08/25/21 09:22 Dose: 10 ml Documented by: Sodium Chloride (Sodium Chloride 0.9% 2.5 Ml Syringe) 2.5 ml FLUSH ASDIRECTED PRN PRN Reason: Keep Vein Open Last Admin: 08/25/21 09:22 Dose: 2.5 ml Documented by: Sodium Chloride (Sodium Chloride 0.9% 10 Ml Syringe) 10 ml FLUSH ASDIRECTED PRN PRN Reason: Keep Vein Open Sodium Chloride (Sodium Chloride 0.9% 2.5 Ml Syringe) 2.5 ml FLUSH ASDIRECTED PRN PRN Reason: Keep Vein Open Sodium Chloride (Sodium Chloride 0.9% 20 Ml Sdv) 10 ml IV ASDIRECTED PRN PRN Reason: IV Use Discontinued Medications Bupivacaine HCl (Bupivacaine 0.5% 10 Ml Sdv) Confirm Administered Dose 10 ml .ROUTE .STK-MED ONE Stop: 08/25/21 13:57 Bupivacaine HCl (Bupivacaine 0.5% 10 Ml Sdv) Confirm Administered Dose 10 ml .ROUTE .STK-MED ONE Stop: 08/25/21 14:46 Dexamethasone (Dexamethasone 4 Mg/Ml 5 Ml Mdv) Confirm Administered Dose 20 mg .ROUTE .STK-MED ONE Stop: 08/25/21 13:05 Dexamethasone (Dexamethasone 4 Mg/Ml 5 Ml Mdv) Confirm Administered Dose 20 mg .ROUTE .STK-MED ONE Stop: 08/25/21 13:06 Dexmedetomidine HCl (Dexmedetomidine 200 Mcg/2 Ml Sdv) Confirm Administered Dose 200 mcg .ROUTE .STK-MED ONE Stop: 08/25/21 13:05 Dexmedetomidine HCl (Dexmedetomidine 200 Mcg/2 Ml Sdv) Confirm Administered Dose 200 mcg .ROUTE .STK-MED ONE Stop: 08/25/21 13:06 Droperidol (Droperidol 5 Mg/2 Ml Sdv) 0.625 mg IVPUSH ONETIME PRN PRN Reason: Nausea/Vomiting Esmolol HCl (Esmolol 100 Mg/10 Ml Sdv) Confirm Administered Dose 100 mg .ROUTE .STK-MED ONE Stop: 08/25/21 13:05 Esmolol HCl (Esmolol 100 Mg/10 Ml Sdv) Confirm Administered Dose 100 mg .ROUTE .STK-MED ONE Stop: 08/25/21 13:06 Fentanyl (Fentanyl 100 Mcg/2 Ml Sdv) 50 mcg IVPUSH Q5M PRN PRN Reason: Pain (mild 1-3) Fentanyl (Fentanyl 100 Mcg/2 Ml Sdv) Confirm Administered Dose 100 mcg .ROUTE .STK-MED ONE Stop: 08/25/21 13:06 Hydromorphone HCl (Hydromorphone 1 Mg/Ml Syringe) 1 mg IVPUSH Q10M PRN PRN Reason: Pain (moderate 4-6) Piperacillin Sod/Tazobactam (Sod 4.5 gm/ Sodium Chloride) 100 mls @ 100 mls/hr IV ONETIME ONE Stop: 08/25/21 11:39 Last Admin: 08/25/21 11:10 Dose: 100 mls/hr Documented by: Sterile Water (Sterile Water For Injection) Confirm Administered Dose 20 mls @ as directed .ROUTE .STK-MED ONE Stop: 08/25/21 13:07 Acetaminophen (Ofirmev 1000 Mg/100 Ml) Confirm Administered Dose 100 mls @ as directed .ROUTE .STK-MED ONE Stop: 08/25/21 15:07 Iopamidol (Iopamidol 755 Mg/Ml 500 Ml Multipack Bottle) 100 ml IVPUSH ONETIME ONE Stop: 08/25/21 10:17 Last Admin: 08/25/21 10:16 Dose: 100 ml Documented by: Ketorolac Tromethamine (Ketorolac 30 Mg/Ml Sdv) Confirm Administered Dose 30 mg .ROUTE .STK-MED ONE Stop: 08/25/21 14:55 Lidocaine (Lidocaine 2% 5 Ml Sdv) Confirm Administered Dose 5 ml .ROUTE .STK-MED ONE Stop: 08/25/21 13:05 Lidocaine (Lidocaine 2% 5 Ml Sdv) Confirm Administered Dose 5 ml .ROUTE .STK-MED ONE Stop: 08/25/21 13:06 Metoclopramide HCl (Metoclopramide 10 Mg/2 Ml Sdv) 10 mg IVPUSH ONETIME PRN PRN Reason: Nausea/Vomiting Midazolam HCl (Midazolam 1 Mg/Ml 2 Ml Sdv) Confirm Administered Dose 2 mg .ROUTE .STK-MED ONE Stop: 08/25/21 13:06 Morphine Sulfate (Morphine 4 Mg/Ml Vial) 2 mg IVPUSH Q10M PRN PRN Reason: Pain (severe 7-10) Naloxone HCl (Naloxone 0.4 Mg/Ml Sdv) 0.1 mg IVPUSH ASDIRECTED PRN PRN Reason: Respiratory Depression Octyl Cyanoacrylate (Octyl 2-Cyanoacrylate 1 Tube) Confirm Administered Dose 1 applic .ROUTE .STK-MED ONE Stop: 08/25/21 13:57 Ondansetron HCl (Ondansetron 4 Mg/2 Ml Sdv) 4 mg IVPUSH ONETIME PRN PRN Reason: Nausea/Vomiting Ondansetron HCl (Ondansetron 4 Mg/2 Ml Sdv) Confirm Administered Dose 4 mg .ROUTE .STK-MED ONE Stop: 08/25/21 14:55 Propofol (Propofol 200 Mg/20 Ml Sdv) Confirm Administered Dose 200 mg .ROUTE .STK-MED ONE Stop: 08/25/21 13:06 Rocuronium Pisek (Rocuronium Pisek 50 Mg/5 Ml Syringe) Confirm Administered Dose 50 mg .ROUTE .STK-MED ONE Stop: 08/25/21 13:07 Succinylcholine Chloride (Succinylcholine Chloride 200 Mg/10 Ml Syr) Confirm Administered Dose 200 mg .ROUTE .STK-MED ONE Stop: 08/25/21 13:07 Sugammadex Sodium (Sugammadex Sodium 200 Mg/2 Ml Vial) Confirm Administered Dose 200 mg .ROUTE .STK-MED ONE Stop: 08/25/21 14:55 - Exam Wound/Incisions: Healing Well General: Alert, Oriented HEENT: Pupils Equal, Pupils Reactive Neck: Supple Lungs: Normal Respiratory Effort Cardiovascular: Regular Rate Skin: Warm, Dry, Intact Sepsis Event Note - Evaluation Sepsis Screening Result: No Definite Risk - Focused Exam Vital Signs: Vital Signs Temp Pulse Resp BP Pulse Ox 08/26/21 07:51 36.1 C 82 16 118/74 96 08/26/21 04:00 36.6 C 76 15 109/71 96 08/26/21 00:00 36.7 C 75 16 114/71 95 08/25/21 20:45 36.7 C 70 16 111/69 94 L - Problem List & Annotations (1) Acute appendicitis SNOMED Code(s): 05718337 Code(s): K35.80 - UNSPECIFIED ACUTE APPENDICITIS Status: Acute Current Visit: Yes (2) Gastritis SNOMED Code(s): 1710726 Code(s): K29.70 - GASTRITIS, UNSPECIFIED, WITHOUT BLEEDING Status: Acute Current Visit: Yes (3) Diverticulosis SNOMED Code(s): 902982748 Code(s): K57.90 - DVRTCLOS OF INTEST, PART UNSP, W/O PERF OR ABSCESS W/O BLEED Status: Acute Current Visit: Yes - Problem List Review Problem List Initiated/Reviewed/Updated: Yes - My Orders Last 24 Hours: Active Orders 24 hr Category Date Time Status Patient Status [ADT] Routine ADT 08/25/21 10:41 Active Notify Provider Vital Signs [RC] ASDIRECTED Care 08/25/21 11:11 Active Overnight Pulse Oximetry [RC] Click to Edit Care 08/25/21 11:11 Active Oxygen Therapy [RC] PRN Care 08/25/21 11:11 Active Oxygen Therapy [RC] PRN Care 08/25/21 11:34 Active RT Aerosol Therapy [RC] ASDIRECTED Care 08/25/21 11:11 Active RT Aerosol Therapy [RC] ASDIRECTED Care 08/25/21 11:11 Active RT BiPAP/CPAP [RC] ASDIRECTED Care 08/25/21 11:11 Active RT Incentive Spirometry [RC] Q1HWA Care 08/25/21 11:34 Active Ready for Discharge [RC] PER UNIT ROUTINE Care 08/26/21 08:08 Active Up ad Julissa [RC] ASDIRECTED Care 08/25/21 11:34 Active Vital Signs [RC] Q4H Care 08/25/21 11:34 Active Vital Signs [RC] Q5M Care 08/25/21 11:11 Active Regular Diet [DIET] Diet 08/25/21 Dinner Active Acetaminophen/HYDROcodone [[place] 325-5 MG] Med 08/25/21 15:49 Active 2 tab PO Q4H PRN Albuterol [Proventil Neb Soln] Med 08/25/21 11:11 Active 2.5 mg NEB ONETIME PRN HYDROmorphone [Dilaudid] Med 08/25/21 11:34 Active 0.5 mg IVPUSH Q1H PRN Lactated Ringers [Ringers, Lactated] 1,000 ml Med 08/25/21 11:45 Active IV ASDIRECTED Omeprazole Med 08/26/21 07:30 Active 40 mg PO ACBREAKFAST Ondansetron [Zofran] Med 08/25/21 11:35 Active 4 mg IVPUSH Q6H PRN Sodium Chloride 0.9% [Normal Saline] Med 08/25/21 11:34 Active 10 ml IV ASDIRECTED PRN Sodium Chloride 0.9% [Saline Flush] Med 08/25/21 09:05 Active 10 ml FLUSH ASDIRECTED PRN Sodium Chloride 0.9% [Saline Flush] Med 08/25/21 11:34 Active 10 ml FLUSH ASDIRECTED PRN Sodium Chloride 0.9% [Saline Flush] Med 08/25/21 09:05 Active 2.5 ml FLUSH ASDIRECTED PRN Sodium Chloride 0.9% [Saline Flush] Med 08/25/21 11:34 Active 2.5 ml FLUSH ASDIRECTED PRN Peripheral IV Insertion Adult [OM.PC] Urgent Oth 08/25/21 11:34 Ordered Pulse Oximetry Continuous Monitoring [OM.PC] Routine Oth 08/25/21 11:11 Ordered Saline Lock Insert [OM.PC] Stat Oth 08/25/21 09:05 Ordered Resuscitation Status Routine Resus Stat 08/25/21 11:34 Ordered Medication Orders Hydrocodone Bitart/Acetaminophen (Acetaminophen/Hydrocodone 325-5 Mg Tab) 2 tab PO Q4H PRN PRN Reason: Abdominal Pain Last Admin: 08/26/21 07:19 Dose: 2 tab Documented by: LISBET Albuterol (Albuterol 0.083% 2.5 Mg/3 Ml Neb Soln) 2.5 mg NEB ONETIME PRN PRN Reason: Wheezing Hydromorphone HCl (Hydromorphone 2 Mg/Ml Syringe) 0.5 mg IVPUSH Q1H PRN PRN Reason: Pain (severe 7-10) Lactated Ringer's (Ringers, Lactated) 1,000 mls @ 125 mls/hr IV ASDIRECTED FOR[facility] Last Admin: 08/25/21 13:34 Dose: 125 mls/hr Documented by: LISBET Omeprazole (Omeprazole 20 Mg Cap.Cr) 40 mg PO ACBREAKFAST [facility] Last Admin: 08/26/21 07:15 Dose: 40 mg Documented by: LISBET Ondansetron HCl (Ondansetron 4 Mg/2 Ml Sdv) 4 mg IVPUSH Q6H PRN PRN Reason: Nausea/Vomiting Sodium Chloride (Sodium Chloride 0.9% 10 Ml Syringe) 10 ml FLUSH ASDIRECTED PRN PRN Reason: Keep Vein Open Last Admin: 08/25/21 09:22 Dose: 10 ml Documented by: LEWILAC Sodium Chloride (Sodium Chloride 0.9% 2.5 Ml Syringe) 2.5 ml FLUSH ASDIRECTED PRN PRN Reason: Keep Vein Open Last Admin: 08/25/21 09:22 Dose: 2.5 ml Documented by: LEWILAC Sodium Chloride (Sodium Chloride 0.9% 10 Ml Syringe) 10 ml FLUSH ASDIRECTED PRN PRN Reason: Keep Vein Open Sodium Chloride (Sodium Chloride 0.9% 2.5 Ml Syringe) 2.5 ml FLUSH ASDIRECTED PRN PRN Reason: Keep Vein Open Sodium Chloride (Sodium Chloride 0.9% 20 Ml Sdv) 10 ml IV ASDIRECTED PRN PRN Reason: IV Use - Plan Plan (Free Text/Narrative):: Patient appears stable. VSS. Tolerating diet. Ok to discharge.
[2021-08-26] MEDS ORDERED: HYDROmorphone 1 MG/ML Syringe IVPUSH PRN (09:33)
== END 2021-08-26 10:30 | disposition home or self-care (01) ==
LOC: MW.ED 08:57 → MW.SDS 10:30 → MW.MS 10:41
PROVIDERS: ADMIT Surgery; ATTEND Surgery
DX: K35.80 Unspecified acute appendicitis (principal); Z01.812 Encounter for preprocedural laboratory examination; Z20.822 Contact with and (suspected) exposure to COVID-19
CPT/HCPCS: 44970; 74177; 80053; 85025; 87635; 96365; 99285; A9270; G0378; J0131; J0330; J1100; J1885; J2250; J2405; J2543; J2704; J3010; J3490; J7030; J7120; Q9967; 00840; U0002

== ENCOUNTER 2024-07-02 09:14 | Day surgery (SDC) | payer OTHER ==
[~2024-07-02 09:14] MED LIST: Sodium Chloride 0.9% 10 ML Syringe FLUSH PRN; Sodium Chloride 0.9% 2.5 ML Syringe FLUSH PRN; Sodium Chloride 0.9% 20 ML SDV IV PRN
[2024-07-02] MEDS: Lactated Ringers 1,000 ML IV SCH (09:37)
[2024-07-02] MEDS ORDERED: propofoL 50 ML ONE (10:23)
== END 2024-07-02 11:30 | disposition home or self-care (01) ==
LOC: MW.SDS 09:14
PROVIDERS: ATTEND Surgery
DX: Z12.11 Encounter for screening for malignant neoplasm of colon (principal); D12.2 Benign neoplasm of ascending colon; E78.5 Hyperlipidemia, unspecified; E66.9 Obesity, unspecified; Z79.899 Other long term (current) drug therapy; Z68.33 Body mass index [BMI] 33.0-33.9, adult
CPT/HCPCS: 45380; J2704; J7120; 00811